=== PATIENT | female | born 1975 | race Caucasian/White ===

== ENCOUNTER 2016-08-31 15:15 | Emergency (ER) | payer BC ==
[~2016-08-31] VITALS: Ht 149.9 cm; Wt 78.0 kg
[~2016-08-31 15:15] MED LIST: PRT40 PO
[2016-08-31 15:29] VITALS: TEMP 37; Ht 149.9 cm; Wt 78.0 kg
[2016-08-31] MEDS ORDERED: ACETAMINOPHEN 500 MG TAB PO STA (16:02)
[2016-08-31 16:29] LABS: BASO % 0.2 %; BASO ABS # 0.02 K/uL (0-0.2); COMPLETE YES; EOS % 0.7 %; HEMATOCRIT 40.1 % (37-47); IG% 0.2 %; LYMPH % 16.4 %; LYMPH ABS # 1.48 K/uL (1.2-3.4); MEAN CELL VOLUME 86.8 fL (80-100); MEAN CORPUSCULAR HGB CONC 35.7 g/dl (32-36); MEAN PLATELET VOLUME 10.4 fL (7.4-10.4); MONO % 3.4 %; NEUT % 79.1 %; PLATELET COUNT 244 K/uL (130-400); RED BLOOD COUNT 4.62 M/uL (4.2-5.4); WHITE BLOOD COUNT 9.02 K/uL (4.8-10.8)
[2016-08-31 16:39] LABS: INR 0.9 (0.9-1.1); PARTIAL THROMBOPLASTIN RATIO 1.2; PROTHROMBIN TIME (PATIENT) 10.1 SECONDS (9.0-12.0)
[2016-08-31] MEDS ORDERED: OPTIRAY 320 IV PRN (16:45)
[2016-08-31 16:46] LABS: BUN/CREATININE RATIO 19.4 (10-20); CALCIUM 8.9 mg/dl (8.5-10.1); CREATININE 0.5 mg/dl (0.60-1.20)
--- NOTE | 2016-08-31 17:50 | DIAGNOSTIC IMAGING REPORT ---
CHEST 2 VIEWS ROUTINE CLINICAL HISTORY: cough, chest tightness dyspnea COMPARISON STUDY: 01/22/2016 FINDINGS: The bones soft tissues and hemidiaphragms are normal. The cardiomediastinal silhouette is normal. The lungs are clear. The pulmonary vasculature is normal. IMPRESSION: Negative chest. Electronically signed by: Jose Luis Samayoa M.D. 08/31/2016 5:49 PM Dictated Date/Time: 08/31/2016 5:47 PM
[2016-08-31 18:10] VITALS: BP 126/82; PULSE 95; O2SAT 99
--- NOTE | 2016-08-31 18:10 | DIAGNOSTIC IMAGING REPORT ---
CHEST CTA for PULMONARY ARTERIES CT DOSE: 293.81 mGy.cm HISTORY: Chest pain dyspnea TECHNIQUE: Multiaxial CT images of the chest were performed following the intravenous administration of contrast to evaluate the pulmonary arteries. Maximal intensity projection images were also obtained. COMPARISON STUDY: None. FINDINGS: There is a normal caliber thoracic aorta with no evidence for dissection. There is no evidence for pulmonary embolus. No pleural effusions. No pneumothorax. The liver and spleen are unremarkable. No mediastinal or hilar lymphadenopathy. The central airways are patent. The lungs are clear. IMPRESSION: No evidence for pulmonary embolus. The lungs are clear. Electronically signed by: Jose Luis Samayoa M.D. 08/31/2016 6:08 PM Dictated Date/Time: 08/31/2016 6:06 PM
--- NOTE | 2016-08-31 18:30 | EMERGENCY ROOM VISIT NOTE ---
History First contact with patient: 15:53 Chief Complaint: HYPERTENSION Stated Complaint: DIZZY, HIGH BLOOD PRESSURE History of Present Illness The patient is a 41 year old female who presents to the Emergency Room with complaints of elevated blood pressure. 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 A coworker thought that she looked pale and told her to go to the school nurse. The school nurse took her blood pressure and it was 155/140. The patient does not have a history of hypertension. She called her family doctor and was told to come to the emergency room. The patient states on the way here she started with a headache across the frontal region. The patient denies any dizziness or visual changes. The patient denies any chest pain. She does admit that this morning she woke up with a cough and feels some mild "chest tightness". The patient denies any ear pain, sore throat, fever. The patient denies any history of blood clots. The patient denies any tobacco use, hormone use or any recent travel or surgeries. The patient denies any recent leg pain. Review of Systems 10 system review was performed and was negative unless stated otherwise history of present illness. Past Medical/Surgical History Medical Problems: (1) Abdominal pain (2) Absent menstruation (3) H/O cleft palate (4) Kidney stones (5) Migraines Surgical Problems: (1) H/O lithotripsy (2) History of hip surgery (3) Status post breast reduction Family History No pertinent family history Social History Smoking Status: Never Smoker Alcohol Use: none Drug Use: none Marital Status: Occupation Status: employed Current/Historical Medications Scheduled PRN Eletriptan Hydrobromide (Relpax), 20 MG PO UD PRN for Migraine Sumatriptan Succinate (Imitrex), 50 MG PO UD PRN for Migraine Allergies Coded Allergies: Morphine (Verified Allergy, Intermediate, HIVES AND SWELLING, 01/22/16) Physical Exam Vital Signs Date Time Temp Pulse Resp B/P Pulse Ox O2 Delivery O2 Flow Rate FiO2 08/31/16 18:10 95 18 126/82 99 Room Air 08/31/16 15:29 37.0 100 16 130/75 97 Room Air Physical Exam PHYSICAL EXAM: Vital Signs were reviewed: Temperature 37.0, blood pressure 130/ 75, pulse 100, respiratory rate 16, Reviewed Nurse's notes and agree. Oxygen saturation is 97 % on room air which is normal . GENERAL: 41-year-old female appears in no acute distress. MENTAL STATUS: Alert, oriented, coherent. EARS: Canals clear. TMs good light reflex, no erythema or fluid level noted. NOSE: Nasal mucosa with moderate erythema engorgement. PHARYNX: No erythema, no edema noted. No exudate noted. Airway is adequate. NECK: Supple, non-tender. No lymphadenopathy noted. LUNGS: Clear to auscultation without wheezes rales or rhonchi. CARDIAC: Regular rate and rhythm without murmur. ABDOMEN: Positive bowel sounds all 4 Quadrants. Soft, nontender to palpation without organomegaly or masses. LOWER EXTREMITIES: Nontender. No cyanosis or edema noted. No palpable cords. Medical Decision & Procedures ER Provider Diagnostic Interpretation: CHEST 2 VIEWS ROUTINE CLINICAL HISTORY: cough, chest tightness dyspnea COMPARISON STUDY: 01/22/2016 FINDINGS: The bones soft tissues and hemidiaphragms are normal. The cardiomediastinal silhouette is normal. The lungs are clear. The pulmonary vasculature is normal. IMPRESSION: Negative chest. Electronically signed by: Jose Luis Samayoa M.D. CHEST CTA for PULMONARY ARTERIES CT DOSE: 293.81 mGy.cm HISTORY: Chest pain dyspnea TECHNIQUE: Multiaxial CT images of the chest were performed following the intravenous administration of contrast to evaluate the pulmonary arteries. Maximal intensity projection images were also obtained. COMPARISON STUDY: None. FINDINGS: There is a normal caliber thoracic aorta with no evidence for dissection. There is no evidence for pulmonary embolus. No pleural effusions. No pneumothorax. The liver and spleen are unremarkable. No mediastinal or hilar lymphadenopathy. The central airways are patent. The lungs are clear. IMPRESSION: No evidence for pulmonary embolus. The lungs are clear. Electronically signed by: Jose Luis Samayoa M.D. 08/31/2016 6:08 PM Dictated Date/Time: 08/31/2016 6:06 PM Laboratory Results 08/31/16 16:10 Red Blood Count 4.62, Mean Corpuscular Volume 86.8, Mean Corpuscular Hemoglobin 31.0, Mean Corpuscular Hemoglobin Concent 35.7, Mean Platelet Volume 10.4, Neutrophils (%) (Auto) 79.1, Lymphocytes (%) (Auto) 16.4, Monocytes (%) (Auto) 3.4, Eosinophils (%) (Auto) 0.7, Basophils (%) (Auto) 0.2, Neutrophils # (Auto) 7.13, Lymphocytes # (Auto) 1.48, Monocytes # (Auto) 0.31, Eosinophils # (Auto) 0.06, Basophils # (Auto) 0.02 08/31/16 16:10 Test 08/31/16 16:10 08/31/16 16:18 White Blood Count 9.02 K/uL (4.8-10.8) Red Blood Count 4.62 M/uL (4.2-5.4) Hemoglobin 14.3 g/dL (12.0-16.0) Hematocrit 40.1 % (37-47) Mean Corpuscular Volume 86.8 fL (80-100) Mean Corpuscular Hemoglobin 31.0 pg (25-34) Mean Corpuscular Hemoglobin Concent 35.7 g/dl (32-36) Platelet Count 244 K/uL (130-400) Mean Platelet Volume 10.4 fL (7.4-10.4) Neutrophils (%) (Auto) 79.1 % Lymphocytes (%) (Auto) 16.4 % Monocytes (%) (Auto) 3.4 % Eosinophils (%) (Auto) 0.7 % Basophils (%) (Auto) 0.2 % Neutrophils # (Auto) 7.13 K/uL (1.4-6.5) Lymphocytes # (Auto) 1.48 K/uL (1.2-3.4) Monocytes # (Auto) 0.31 K/uL (0.11-0.59) Eosinophils # (Auto) 0.06 K/uL (0-0.5) Basophils # (Auto) 0.02 K/uL (0-0.2) RDW Standard Deviation 40.7 fL (36.4-46.3) RDW Coefficient of Variation 12.8 % (11.5-14.5) Immature Granulocyte % (Auto) 0.2 % Immature Granulocyte # (Auto) 0.02 K/uL (0.00-0.02) Prothrombin Time 10.1 SECONDS (9.0-12.0) Prothromb Time International Ratio 0.9 (0.9-1.1) Activated Partial Thromboplast Time 30.5 SECONDS (21.0-31.0) Partial Thromboplastin Ratio 1.2 Anion Gap 6.0 mmol/L (3-11) Est Creatinine Clear Calc Drug Dose 133.6 ml/min Estimated GFR () 139.3 Estimated GFR (Non- 120.2 BUN/Creatinine Ratio 19.4 (10-20) Calcium Level 8.9 mg/dl (8.5-10.1) Bedside D-Dimer > 450 ng/mlFEU (0-450) Medications Administered Medications (Trade) Dose Ordered Sig/Bang Route Start Time Stop Time Status Last Admin Dose Admin Acetaminophen (Tylenol Tab) 1,000 mg NOW STAT PO 08/31/16 16:02 08/31/16 16:05 DC 08/31/16 16:16 1,000 MG ED Course The patient was evaluated. IV access was obtained. CBC and differential, renal profile, pointing care d-dimer was ordered. Chest x-ray was ordered and interpreted by the radiologist and myself as above without any acute findings. The patient was given Tylenol 1 g by mouth for headache. Labs are reviewed and were unremarkable except for elevated d-dimer . The patient was informed of the laboratory findings a CT of the chest was ordered for PE. This was reviewed by the radiologist as above without any evidence of pulmonary embolus. The patient was informed of the findings. She was reevaluated and stated that her headache was gone and was discharged home in stable condition with her driving. Medical Decision Differential diagnosis include bronchitis, pneumonia, PE, hypertension, acute sinusitis, URI Impression Primary Impression: URI (upper respiratory infection) Additional Impressions: Headache Elevated blood pressure reading Departure Information Dispostion Home / Self-Care Condition GOOD Referrals No Doctor, Assigned (PCP) Forms HOME CARE DOCUMENTATION FORM, IMPORTANT VISIT INFORMATION, WORK / SCHOOL INSTRUCTIONS Patient Instructions [employer] Additional Instructions Tylenol as needed for headache or body aches. Recommend [id number] symptomatic treatment such as steroid nasal spray or Coricidin HBP. Follow-up with your family physician in 2 days for blood pressure recheck. If symptoms worsen in the interim return to ER. Work Instructions Return To Work: 2 days Problem Qualifiers
[2016-08-31] MEDS ORDERED: SUMA50TA15 PO (23:20)
[2016-08-31] MEDS ORDERED: ELET20TA PO (23:20)
== END 2016-08-31 18:52 | disposition home or self-care (01) ==
LOC: C.EDB 15:17 → C.EDC 18:52
DX: J06.9 Acute upper respiratory infection, unspecified (principal); R51 Headache; R03.0 Elevated blood-pressure reading, without diagnosis of hypertension; Z87.442 Personal history of urinary calculi